=== PATIENT | female | born 1975 | race Caucasian/White ===

== ENCOUNTER 2018-10-21 10:07 | Outpatient (CLI) | payer BC ==
--- NOTE | 2018-10-21 10:22 | RAD ---
Chest AP view INDICATION: Positive TB test COMPARISON: None FINDINGS: Lungs:The lungs are clear Cardiac silhouette pulmonary vasculature:The cardiomediastinal silhouette appears within normal limit s. Pleural spaces:No pleural effusion or pneumothorax is demonstrated. Upper abdomen:No abnormality seen. Osseous structures: No acute osseous abnormality. Additional findings:None. IMPRESSION: No suspicious abnormality to suggest active TB.
== END 2018-10-21 10:08 | disposition home or self-care (01) ==
LOC: BICRAD 10:07
DX: R76.12 Nonspecific reaction to cell mediated immunity measurement of gamma interferon antigen response without active tuberculosis (principal)
CPT/HCPCS: 71045

== ENCOUNTER 2019-01-03 07:36 | Outpatient (CLI) | payer BC ==
--- NOTE | 2019-01-03 07:50 | RAD ---
EXAM: Chest 2 views: HISTORY: Dyspnea COMPARISON: None. FINDINGS: There is a normal-sized cardiomediastinal silhouette. There is no evidence of consolidation, mass, or pleural effusion. The bones are unremarkable. Cholecystectomy clips are seen. IMPRESSION: No evidence of acute cardiopulmonary disease
== END 2019-01-03 07:37 | disposition home or self-care (01) ==
LOC: RAD 07:36
PROVIDERS: ATTEND Internal Medicine Critical Care Medicine
DX: R06.00 Dyspnea, unspecified (principal)
CPT/HCPCS: 71046